=== PATIENT | male | born 1945 | race Caucasian/White ===

== ENCOUNTER 2018-07-08 07:00 | Day surgery (SDC) | payer OTHER ==
[2018-07-04 11:26] LABS: Basophils # (auto) 0 uL; Basophils % (auto) 0.4 % (0.0-2.0); Eosinophils # (auto) 0 uL; Eosinophils % (auto) 0.1 % (0.0-7.0); Hematocrit 46.3 % (41.0-53.0); Hemoglobin 15.6 g/dL (13.5-17.5); Mean Corpuscular Hemoglobin 31.5 pg (28.0-32.0); Mean Corpuscular Hgb Conc. 33.8 g/dL (32.0-36.0); Mean Corpuscular Volume 93.3 fL (80.0-100.0); Monocytes # (auto) 0.4 uL; Monocytes % (auto) 5.8 % (0.0-12.0); Neutrophils % (auto) 80.7 % (37.0-80.0); Platelet Count (auto) 208 10^3/uL (140-450); Red Blood Cells 4.96 10^6/uL (4.5-5.90); White Blood Cell 7.5 10^3/uL (4.4-10.8)
[2018-07-04 11:29] LABS: Urine Bacteria FEW /hpf (None Seen); Urine Blood Negative /uL (Negative); Urine Mucus FEW (None Seen); Urine Specific Gravity 1.021 (1.001-1.035); Urine WBC 16 /hpf (0 - 3)
[2018-07-04 11:38] LABS: INR 0.97 (0.9-1.15); Partial Thromboplastin Time 26.4 sec (23.78-33.04)
[2018-07-04 11:46] LABS: Albumin 3.8 g/dL (3.4-5.0); Potassium 3.5 mmol/L (3.5-5.1)
[2018-07-04 11:52] LABS: BUN/Creatinine Ratio 17.7; Bilirubin, Total 0.6 mg/dL (0.2-1.0); Calcium 8.8 mg/dL (8.5-10.1); Total Protein 7.1 g/dL (6.4-8.2)
[~2018-07-08] VITALS: Ht 185.4 cm; Wt 77.1 kg
[~2018-07-08 07:00] MED LIST: ATOR20TA50 PO; BENA40TA7 PO; LUTE6TAB2 PO; NIAC500T71 PO; OMEG100078 PO; OMEP20CA74 OR; TAM04C PO
[2018-07-08] MEDS ORDERED: CIPROFLOXACIN 400MG/200ML 200 ML IV ONE (07:30)
[2018-07-08] MEDS ORDERED: SUCCINYLCHOLINE CHLORIDE 20 MG/ML 10ML VIAL IV ONE (08:42)
[2018-07-08] MEDS ORDERED: LIDOCAINE 1% (LOCAL ANESTH.) PF 5ml SDV ONE (08:42)
[2018-07-08] MEDS ORDERED: ROCURONIUM 10MG/ML 10ML VIAL IV ONE (08:46)
[2018-07-08] MEDS ORDERED: MIDAZOLAM HCL 1MG/1ML-2 ML VIAL ONE (08:46)
[2018-07-08] MEDS ORDERED: PROPOFOL 10 MG/ML 20 ML IV ONE (08:46)
[2018-07-08] MEDS ORDERED: METOCLOPRAMIDE HCL 5MG/ml INJ 2ml VIAL ONE (08:50)
[2018-07-08] MEDS ORDERED: fentaNYL CITRATE 100 MCG/2 ML VL ONE (08:58)
[2018-07-08] MEDS ORDERED: ePHEDrine SULFATE 50 MG/ML AMP ONE (09:11)
[2018-07-08] MEDS ORDERED: SODIUM CHLORIDE LOCK 10 ML ONE (09:11)
[2018-07-08] MEDS ORDERED: HYDROmorphone HCL 2 MG/ML VL IV PRN ×2 (09:15)
[2018-07-08] MEDS ORDERED: ONDANSETRON HCL 4 MG/2 ML VIAL IV ONE (09:15)
[2018-07-08] MEDS ORDERED: NALOXONE HCL 0.4 MG/ML VIAL IV PRN (09:15)
[2018-07-08] MEDS ORDERED: GLYCOPYRROLATE 0.2 MG/ML 1ML VIAL ONE (09:21)
[2018-07-08] MEDS ORDERED: NEOSTIGMINE 1 MG/ML INJ (10mg/10ML VIAL) ONE (09:21)
[2018-07-08] MEDS ORDERED: DexAMETHasone SOD PHOS 10MG/1ML VIAL INJ ONE (09:27)
[2018-07-08 10:31] VITALS: BP 139/89
== END 2018-07-08 10:37 | disposition home or self-care (01) ==
LOC: SUR 07:00
PROVIDERS: ATTEND Urology
DX: N20.1 Calculus of ureter (principal); I10 Essential (primary) hypertension; K21.9 Gastro-esophageal reflux disease without esophagitis; M19.90 Unspecified osteoarthritis, unspecified site; E78.00 Pure hypercholesterolemia, unspecified; N40.0 Benign prostatic hyperplasia without lower urinary tract symptoms; Z88.0 Allergy status to penicillin
CPT/HCPCS: 36415; 50590; 80053; 81001; 85025; 85610; 85730; J0330; J0744; J1100; J2250; J2704; J2765; J3010

== ENCOUNTER → 2018-08-01 | Outpatient (CLI) | payer OTHER | END | disposition home or self-care (01) | LOC: LAB 14:00 | PROVIDERS: ATTEND Urology | DX: N20.0 Calculus of kidney (principal) | CPT/HCPCS: 82360 ==

== ENCOUNTER → 2019-02-10 | Outpatient (CLI) | payer OTHER ==
[2019-02-10 09:58] LABS: Basophils # (auto) 0 uL; Basophils % (auto) 0.7 % (0.0-2.0); Eosinophils # (auto) 0.1 uL; Eosinophils % (auto) 1.8 % (0.0-7.0); Hematocrit 46.7 % (41.0-53.0); Hemoglobin 16.2 g/dL (13.5-17.5); Lymphocytes # (auto) 1.6 uL; Lymphocytes % (auto) 26.9 % (10.0-50.0); Mean Corpuscular Hemoglobin 32.3 pg (28.0-32.0); Mean Corpuscular Hgb Conc. 34.6 g/dL (32.0-36.0); Mean Corpuscular Volume 93.2 fL (80.0-100.0); Monocytes # (auto) 0.6 uL; Monocytes % (auto) 9.5 % (0.0-12.0); Neutrophils # (auto) 3.7 uL; Neutrophils % (auto) 61.1 % (37.0-80.0); Platelet Count (auto) 187 10^3/uL (140-450); Red Cell Distribution Width 12.6 % (11.8-14.3)
[2019-02-10 10:26] LABS: Albumin 3.6 g/dL (3.4-5.0); Calcium 8.6 mg/dL (8.5-10.1)
[2019-02-10 10:35] LABS: BUN/Creatinine Ratio 18.5; Bilirubin, Total 0.7 mg/dL (0.2-1.0); Total Protein 6.8 g/dL (6.4-8.2)
== END | disposition home or self-care (01) ==
LOC: LAB 09:35
PROVIDERS: ATTEND Physician Assistant
DX: Z12.5 Encounter for screening for malignant neoplasm of prostate (principal); I12.9 Hypertensive chronic kidney disease with stage 1 through stage 4 chronic kidney disease, or unspecified chronic kidney disease; N18.2 Chronic kidney disease, stage 2 (mild); M12.9 Arthropathy, unspecified; N40.0 Benign prostatic hyperplasia without lower urinary tract symptoms
CPT/HCPCS: 36415; 80053; 80061; 85025

== ENCOUNTER 2024-12-23 06:21 | Inpatient (IN) | payer OTHER ==
[2024-12-23] VITALS (10 sets, daily range): BP systolic 124–173; BP diastolic 81–99; PULSE 84–103; RESP 14–22; TEMP 97.6–98.4; O2SAT 95–99
[~2024-12-23] VITALS: Ht 185.4 cm; Wt 68.9 kg
[~2024-12-23 06:21] MED LIST changes: -BENA40TA7 PO; +BENA40TA71 PO; +FINA5TAB4 PO; +METF-489 PO; +OMEG-20 PO; -OMEG100078 PO; -TAM04C PO; +TAMS-35 PO
[2024-12-23] MEDS ORDERED: ONDANSETRON HCL 4 MG/2 ML VIAL ONE (08:06)
[2024-12-23] MEDS ORDERED: MIDAZOLAM HCL 2MG/2ML 2ml VIAL (1mg/ml) ONE (08:06)
[2024-12-23] MEDS ORDERED: LIDOCAINE HCL 2% TOP JELLY 5ML TOP ONE (08:06)
[2024-12-23] MEDS ORDERED: SODIUM CHLORIDE LOCK 10 ML ONE (08:06)
[2024-12-23] MEDS ORDERED: LIDOCAINE 1% INJ PF 5ML AMP ONE (08:06)
[2024-12-23] MEDS ORDERED: fentaNYL CITRATE 100 MCG/2 ML VL ONE (08:06)
[2024-12-23] MEDS ORDERED: PROPOFOL 10 MG/ML 20 ML IV ONE (08:06)
[2024-12-23] MEDS ORDERED: HYDROmorphone HCL 2 MG/ML VL/or syr IV PRN ×2 (08:30)
[2024-12-23] MEDS ORDERED: MORPHINE SULFATE 4 MG/ML SYR/VIAL IV PRN ×2 (08:30→13:15)
[2024-12-23] MEDS: KETOROLAC TROMETH 30 MG/ML 1ML VIAL IV ONE (08:30)
[2024-12-23] MEDS: IOHEXOL 300 MG/ML 100ML BOTTLE IJ ONE (08:32)
[2024-12-23] MEDS: CIPROFLOXACIN 400MG/200ML 200 ML IV ONE (08:50)
--- NOTE | 2024-12-23 09:46 | DVHNC2 ---
Procedure - OPERATIVE REPORT Pre-op. Diagnosis: Large bladder calculus greater than 5 cm elevated PSA elevated PSA Post-op. Diagnosis: Same as pre-op diagnosis Operation: Shock/pulse ultrasonic Cystolitholapaxy transrectal ultrasound-guided prostate biopsy Anesthesia: General Indications: Patient was found to have symptomatic bladder stone > 5cm and elevated PSA Informed Consent: Indications, risks, complications, alternatives and benefits of ultrasonic/laser cystolitholapaxy and prostate biopsy were discussed with patient. All question were encouraged and answered. He elected to proceed. Details of Procedure: Under satisfactory anesthesia, the patient was positioned in lithotomy and cystoscopy is performed with finding of large (>5 cm) bladder stone. Using the Shock/Pulse ultrasonic system, the bladder calculi are pulverized into fragments and suctioned out. 20 F Lepe catheter was placed. Next transrectal ultrasound was performed measuring the prostate to be 31 g. Extended core biopsies was taken per protocol. Patient tolerated the procedure well. The patient was then taken off the OR table and sent to recovery room in stable condition. Specimens: Bladder calculi fragments extended core prostate biopsy Complications: None NAVARRO GUNN MD Dec 23, 2024 09:46
--- NOTE | 2024-12-23 09:47 | DVHDS2 ---
New Physician D'charge PN Admitting Diagnosis Admitting Diagnosis Bladder calculus Elevated PSA Discharge Diagnosis Same Operations or Procedures Shock pulse cysto litholapaxy Transrectal ultrasound-guided prostate biopsy Reason(s) For Hospitalization Surgery Treatment Plan Discharge Condition of Discharge Fair Disposition Home Discharge Instructions Diet: Regular Activity: Light activity Activity comment: As tolerated Medications: Given Follow Up Care Follow Up/Referral: Follow up in two weeks for pathology results Discharge Statement: "Patient was advised to return to the ER or call 911 if any headaches, dizziness, shortness of breath, chest pain, abdominal pain, bleeding, fevers, or worsening of medical condition. Patient was counseled about treatment plan, medications, possible side effects, patientverbalized understanding. All questions were answered to the best of my ability. This discharge took greater then 30 minutes in planning, reviewing documentation, counseling the patient, and discussing with other team members." NAVARRO GUNN MD Dec 23, 2024 09:47
[2024-12-23] MEDS: METOCLOPRAMIDE HCL 5MG/ml INJ 2ml VIAL IV PRN (12:11)
[2024-12-23] MEDS: MORPHINE SULFATE INJ 2 MG/ml SYRG IV PRN (12:25)
[2024-12-23] MEDS: METOCLOPRAMIDE HCL 5MG/ml INJ 2ml VIAL ONE (12:33)
[2024-12-23] MEDS ORDERED: NITROGLYCERIN 0.4 MG SL TAB SL PRN (12:45)
[2024-12-23] MEDS: ONDANSETRON HCL 4 MG/2 ML VIAL ONE (13:48)
[2024-12-23] MEDS: ONDANSETRON HCL 4 MG/2 ML VIAL IV ONE (13:50)
[2024-12-23] MEDS: SODIUM CHLORIDE 0.9% 500 ML IV ONE (15:11)
[2024-12-23] MEDS ORDERED: MORPHINE SULFATE INJ 2 MG/ml SYRG IV PRN (18:15)
[2024-12-23] MEDS ORDERED: ONDANSETRON HCL 4 MG/2 ML VIAL IV PRN (18:15)
--- NOTE | 2024-12-23 18:30 | DVHHP2 ---
History of Present Illness Reason for Visit: Arrhythmias History of Present Illness 79-year-old male with a known history of diabetes mellitus type 2, hypertension, dyslipidemia, prostate enlargement with the elevated PSA and bladder urinary stone patient is status post cystoscopy with cystolitholapaxy. Patient was developing some arrhythmias eventually patient was recommended to be admitted overnight. Patient currently denies any chest pain palpitation. Denies any known history of coronary artery disease. Cardiovascular: HTN, hyperipidemia Renal/: Hematuria, Other (Prostate enlargement.) Endocrine: Diabetes Review of Systems Review of Systems Twelve review of system are negative besides mentioned above. Allergies: Coded Allergies: Penicillins (Verified Allergy, Severe, 07/04/18) Medications Current Medications Medications Dose Ordered Sig/Donya Route Start Time Stop Time Status Last Admin Dose Admin Nitroglycerin 0.4 mg Q5MINP PRN SL 12/23/24 12:45 Morphine Sulfate 2 mg Q30M PRN IV 12/23/24 13:15 Ciprofloxacin 200 ml @ 200 mls/hr BID IV 12/23/24 22:00 Acetaminophen/ Hydrocodone Bitart 1 tab Q4HPRN PRN PO 12/23/24 18:15 Morphine Sulfate 2 mg Q4HPRN PRN IV 12/23/24 18:15 Ondansetron HCl 4 mg Q4HPRN PRN IV 12/23/24 18:15 Hydralazine HCl 10 mg Q6HP PRN IV 12/23/24 18:15 Exam Vital Signs Vital Signs Date Time Temp Pulse Resp B/P (MAP) Pulse Ox O2 Delivery O2 Flow Rate FiO2 12/23/24 18:11 97.6 92 20 173/96 (121) 97 97.6 12/23/24 12:59 Nasal Cannula 3.0 12/23/24 12:59 99 Exam HEENT pupils are reactive Neck is supple CV is S1-S2 regular rate and rhythm Respiratory diminished breath sounds bases GI positive bowel sound 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 Labs/Xrays Labs Test 12/23/24 09:08 12/23/24 07:45 Range/Units POC Glucose 148 H 70-106 mg/dl SEPSIS Sepsis Screen Physician Orders Admit (12/23/24 12:32) Nitroglycerin Sublingual (Ntrostat Subli (12/23/24 12:45) Stat Ekg For Chest Pain (12/23/24 12:32) Notify Of Changes From Base (12/23/24 12:32) Surveying Crew Rodman For 24 Hours (12/23/24 12:32) Emergency Dysrhythmia Protocol (12/23/24 12:32) Rhythm Strips Once Every Shift (12/23/24 12:32) Oxygen By Nasal Cannula (12/23/24 12:32) Ciprofloxacin 400mg/200ml (Cipro Iv) (12/23/24 22:00) Morphine Sulfate Injection (12/23/24 13:15) Transfer Orders (12/23/24 15:36) Basic Metabolic Panel (12/23/24 15:54) Magnesium (12/23/24 15:54) Stone Analysis Urinary (12/23/24 09:08) Hydrocodone-Acet 5/325mg Tab ([place] (12/23/24 18:15) Morphine Sulfate Injection (12/23/24 18:15) Ondansetron Hcl (Zofran) (12/23/24 18:15) Hydralazine Injection (Apresoline Inject (12/23/24 18:15) Basic Metabolic Panel (12/24/24 06:00) Complete Blood Count (12/24/24 06:00) Magnesium (12/24/24 06:00) Vital Signs Date Time Temp Pulse Resp B/P (MAP) Pulse Ox O2 Delivery O2 Flow Rate FiO2 12/23/24 18:11 97.6 92 20 173/96 (121) 97 97.6 12/23/24 17:20 96 20 161/90 (113) 97 12/23/24 16:43 96 21 163/90 (114) 98 12/23/24 15:43 93 16 157/85 (109) 95 12/23/24 14:43 97 13 173/89 (117) 97 12/23/24 13:43 97 15 177/87 (117) 98 12/23/24 12:59 84 20 99 Nasal Cannula 3.0 12/23/24 12:59 Nasal Cannula 3.0 99 12/23/24 12:43 85 20 158/89 (112) 98 12/23/24 12:25 86 16 165/87 12/23/24 11:43 92 17 175/85 (115) 97 12/23/24 11:28 96 17 96 Room Air 0 12/23/24 11:28 88 16 152/83 (106) 96 12/23/24 11:28 Room Air 0 96 12/23/24 10:58 87 20 154/86 (108) 97 12/23/24 10:28 82 21 169/74 (105) 96 Medications Medications Dose Ordered Sig/Donya Route Start Time Stop Time Status Last Admin Dose Admin Ciprofloxacin 200 ml @ ud STK-MED ONCE IV 12/23/24 07:45 12/23/24 07:41 DC 12/23/24 08:50 Metoclopramide HCl 10 mg ONCE PRN IV 12/23/24 08:30 12/23/24 08:31 DC 12/23/24 12:11 10 MG Morphine Sulfate 1 mg Q30M PRN IV 12/23/24 08:30 12/23/24 10:31 DC 12/23/24 12:25 1 MG Ondansetron HCl 4 mg ONCE ONCE IV 12/23/24 13:46 12/23/24 13:48 DC 12/23/24 13:50 4 MG Assessment/Plan Assessment/Plan 79-year-old male with a known history of diabetes mellitus type 2, hypertension, dyslipidemia who underwent shock/pulse ultrasonic cysto litholapaxy and transrectal guided prostate biopsy for prostate enlargement with the elevated as a found to have 1. Tele arrhythmias, currently asymptomatic 2. Large bladder calculus with the elevated PSA status post shock/pulse ultrasound cystolitholapaxy and transrectal guided prostate biopsy ruled out prostatic malignancy 3. Diabetes mellitus type 2 4. Hypertension Five dyslipidemia -tele admission, 2D echo, cardiology consultation, continue pain meds as needed Plan discussed with: Patient, Other My Orders Orders - ALONDRA PANCHAL MD Procedure Category Date Status Time Transfer Orders XFER 12/23/24 Transmitted 15:36 Basic Metabolic Panel LAB 12/23/24 Logged 15:54 Magnesium LAB 12/23/24 Logged 15:54 Hydrocodone-Acet PHA 12/23/24 In Process 5/325mg Tab ([place] 18:15 Morphine Sulfate PHA 12/23/24 In Process Injection 18:15 Ondansetron Hcl PHA 12/23/24 In Process (Zofran) 18:15 Hydralazine Injection PHA 12/23/24 In Process (Apresoline Inject 18:15 Basic Metabolic Panel LAB 12/24/24 Verified 06:00 Complete Blood Count LAB 12/24/24 Verified 06:00 Magnesium LAB 12/24/24 Verified 06:00 Date of Service: Dec 23, 2024 Billing Provider: ALONDRA PANCHAL MD Common Visit Codes: NOT BILLABLE ALONDRA PANCHAL MD Dec 23, 2024 18:30
[2024-12-23 19:21] LABS: Chloride 103 mmol/L (98-107); Potassium 3.8 mmol/L (3.5-5.1); Sodium 137 mmol/L (136-145)
[2024-12-23 19:22] LABS: Anion Gap 11 (5-15); Carbon Dioxide 23 mmol/L (20-31)
[2024-12-23 19:27] LABS: BUN/Creatinine Ratio 16.4 (10.0-20.0); Blood Urea Nitrogen 9 mg/dL (9-23)
[2024-12-23 19:32] LABS: Calcium 8.3 mg/dL (8.7-10.4); Glucose 181 mg/dL (74-106); Magnesium 1.6 mg/dL (1.6-2.6)
[2024-12-23] MEDS: hydrALAZINE HCL 20 MG/ML VL IV PRN (21:03)
[2024-12-23] MEDS: HYDROcodone-ACET 5/325MG TAB PO PRN (21:07)
[2024-12-23] MEDS: CIPROFLOXACIN 400MG/200ML 200 ML IV SCH (21:11)
[2024-12-24] VITALS (9 sets, daily range): BP systolic 126–158; BP diastolic 72–96; PULSE 60–92; RESP 18–20; TEMP 98.1–98.7; O2SAT 93–100
[2024-12-24 06:59] LABS: Hematocrit 40.6 % (41.0-53.0); Hemoglobin 14.2 g/dL (13.5-17.5); Mean Corpuscular Hemoglobin 32.7 pg (28.0-32.0); Mean Corpuscular Volume 93.2 fL (80.0-100.0); Nucleated Red Blood Cells % 0.0 %
[2024-12-24 07:09] LABS: Anion Gap 10 (5-15); Calcium 8.7 mg/dL (8.7-10.4); Carbon Dioxide 28 mmol/L (20-31); Chloride 103 mmol/L (98-107); Sodium 141 mmol/L (136-145)
[2024-12-24 07:15] LABS: BUN/Creatinine Ratio 9.4 (10.0-20.0); Magnesium 1.9 mg/dL (1.6-2.6)
[2024-12-24 07:18] LABS: Blood Urea Nitrogen 6 mg/dL (9-23); Glucose 131 mg/dL (74-106); Potassium 3.4 mmol/L (3.5-5.1)
[2024-12-24 09:36] LABS: Triglycerides 97 mg/dL (< 150)
[2024-12-24 09:38] LABS: Cholesterol 145 mg/dL (< 200); HDL Cholesterol 57 mg/dL (40-59)
--- NOTE | 2024-12-24 11:31 | DVHINCON2 ---
Date Seen: Dec 24, 2024 Referring Physician MD Rossy Reason for Consultation Arrhythmias History of Present Illness This is a 79-year-old male patient who was initially seen by urologist Dr. Chi for an outpatient procedure of shock/pulse ultrasonic cystolitholapaxy. The patient was admitted to the hospital for concerns of hematuria post procedure. Cardiology has been consulted at this time for arrhythmia. Initial twelve lead electrocardiogram found in patient's chart reveals normal sinus rhythm with occasional PVC. At time of assessment, the patient remains in normal sinus rhythm. No arrhythmias or events found on cardiac care unit nurse. The patient denies any cardiac symptoms including chest pain, palpitations, shortness of breath, or dizziness. Significant past medical history includes hypertension, dyslipidemia, retinitis pigmentosa, kidney stones, and benign prostatic hyperplasia. Past Medical History Past medical history reviewed. No other significant than mentioned above. Past Surgical History Lithotripsy Cholecystectomy Family History: Family history: Diabetes mellitus G8 FATHER G8 BROTHER Family History Family history reviewed. 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 Denies any alcohol use Denies any tobacco use Allergies: Coded Allergies: Penicillins (Verified Allergy, Severe, 07/04/18) Home Meds Reported Medications Metformin Hydrochloride (METFORMIN HCL ER) 500 Mg Tab, 500 MG PO DAILY, TAB 12/22/24 Finasteride (Finasteride) 5 Mg Tab, 5 MG PO DAILY, TAB 12/22/24 Tamsulosin Hcl (Flomax) 0.4 Mg Cap, 1 CAP PO DAILY, #30 CAP 11 Refills 07/04/18 Vegetable Enzyme (LUTEIN) 6 Mg Tab, 6 MG PO DAILY, TAB 07/04/18 Benazepril Hcl (Benazepril Hcl) 40 Mg Tab, 40 MG PO DAILY for 30 Days, MG 07/04/18 Atorvastatin Calcium (ATORVASTATIN CALCIUM) 20 Mg Tab, 1 TAB PO DAILY, #30 TAB 5 Refills 07/04/18 Niacinamide (NIACIN) 500 Mg Tab, 500 MG PO BID, TAB 02/15/13 [place]-3 Fatty Acids (FISH OIL) 1,000 Mg Cap, 1000 MG PO DAILY, CAP 02/15/13 Omeprazole (PRILOSEC) 20 Mg Cap, 20 MG OR DAILY, CAP 02/15/13 Home Meds Home medications reviewed. Current Medications Current Medications Medications (Trade) Dose Ordered Sig/Donya Route PRN Reason Start Time Stop Time Status Last Admin Nitroglycerin (Ntrostat Sublingual) 0.4 mg Q5MINP PRN SL FOR CHEST PAIN 12/23/24 12:45 Morphine Sulfate 2 mg Q30M PRN IV FOR CHEST PAIN 12/23/24 13:15 Ciprofloxacin 200 ml @ 200 mls/hr BID IV 12/23/24 22:00 12/24/24 09:33 Acetaminophen/ Hydrocodone Bitart ([place] 5/325MG Tab) 1 tab Q4HPRN PRN PO MODERATE PAIN (4-6 PAIN SCALE) 12/23/24 18:15 12/24/24 09:42 Morphine Sulfate 2 mg Q4HPRN PRN IV SEVERE PAIN (7-10 PAIN SCALE) 12/23/24 18:15 Ondansetron HCl (Zofran) 4 mg Q4HPRN PRN IV NAUSEA / VOMITING 12/23/24 18:15 Hydralazine HCl (Apresoline Injection) 10 mg Q6HP PRN IV SBP>150 12/23/24 18:15 12/23/24 21:03 Review of Systems Constitutional: No symptom reported Ears, Nose, & Throat: No symptom reported Eyes: No symptom reported Neurological: No symptoms reported Pulmonary/Respiratory: No symptoms reported Cardiovascular: No symptom reported Gastrointestinal: No symptom reported Genitourinary: Hematuria Musculoskeletal: No symptom reported Skin: No symptom reported Psychiatric: No symptom reported Endocrine: No symptom reported Hematologic/Lymphatic: No symptom reported Vital Signs Vital Signs Date Time Temp Pulse Resp B/P (MAP) Pulse Ox O2 Delivery O2 Flow Rate FiO2 12/24/24 09:00 98.7 80 18 126/73 (90) 95 98.7 12/24/24 08:00 Room Air* 0 21 Physical Exam General Appearance: Cooperative. Well-developed. Well-nourished. No acute distress. Pulmonary/Respiratory: Clear, bilateral breaths sounds. Cardiovascular/Chest: Regular rate and rhythm. Peripheral Pulses: 2+ Radial (R). 2+ Radial (L). 2+ Pedal (R). 2+ Pedal (L) Abdominal Exam: Normal bowel sounds. Ankle Exam: Negative ankle edema Lower extremities: Negative lower extremity edema Neuro/Mental Status: A/OX4, coherent. Thoughts/Psych: Normal thought pattern. Appropriate mood and affect. Good judgment and insight. Appearance: No acute distress. Skin Exam: Normal inspection. Normal color. Warm and dry. Labs/Diagnostic Data Labs Test 12/24/24 05:45 12/23/24 09:08 12/23/24 07:45 Range/Units White Blood Count 10.3 4.4-10.8 10^3/uL Red Blood Count 4.35 L 4.5-5.90 10^6/uL Hemoglobin 14.2 13.5-17.5 g/dL Hematocrit 40.6 L 41.0-53.0 % Mean Corpuscular Volume 93.2 80.0-100.0 fL Mean Corpuscular Hemoglobin 32.7 H 28.0-32.0 pg Mean Corpuscular Hemoglobin Concent 35.1 32.0-36.0 g/dL Red Cell Distribution Width 13.3 11.8-14.3 % Platelet Count 207 140-450 10^3/uL Mean Platelet Volume 8.6 6.9-10.8 fL Neutrophils (%) (Auto) 77.2 37.0-80.0 % Lymphocytes (%) (Auto) 13.5 10.0-50.0 % Monocytes (%) (Auto) 9.0 0.0-12.0 % Eosinophils (%) (Auto) 0.2 0.0-7.0 % Basophils (%) (Auto) 0.1 0.0-2.0 % Neutrophils # (Auto) 7.9 1.6-8.6 10 ^3/uL Lymphocytes # (Auto) 1.4 0.4-5.4 10 ^3/uL Monocytes # (Auto) 0.9 0-1.3 10 ^3/uL Eosinophils # (Auto) 0 0-0.8 10 ^3/uL Basophils # (Auto) 0 0-0.2 10 ^3/uL Nucleated Red Blood Cells 0.0 % Sodium Level 141 136-145 mmol/L Potassium Level 3.4 L 3.5-5.1 mmol/L Chloride Level 103 98-107 mmol/L Carbon Dioxide Level 28 20-31 mmol/L Anion Gap 10 5-15 Blood Urea Nitrogen 6 L 9-23 mg/dL Creatinine 0.64 L 0.700-1.30 mg/dL Glomerular Filtration Rate Calc 97 >90 mL/min BUN/Creatinine Ratio 9.4 L 10.0-20.0 Serum Glucose 131 H 74-106 mg/dL Hemoglobin A1c 5.6 <5.7 % A1C Calcium Level 8.7 8.7-10.4 mg/dL Magnesium Level 1.9 1.6-2.6 mg/dL Triglycerides Level 97 < 150 mg/dL Cholesterol Level 145 < 200 mg/dL LDL Cholesterol 75 < 100 mg/dL HDL Cholesterol 57 40-59 mg/dL Thyroid Stimulating Hormone (TSH) 0.86 0.55-4.78 uIU/mL POC Glucose 148 H 70-106 mg/dl Assessment Sinus rhythm with occasional PVCs Rule out structural heart disease Hypertension Dyslipidemia Hypokalemia Bladder calculus status post shock/pulse ultrasonic cystolitholapaxy Hematuria Benign prostatic hyperplasia Retinitis pigmentosa Plan/Recommendation We will continue with the following plan/recommendations (Dr. Mai): We will proceed with obtaining a transthoracic echocardiogram to evaluate cardiac function. 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 Reviewed twelve lead electrocardiogram which found sinus rhythm with occasional PVCs. At this time, patient is hypokalemic, we will order potassium replacement. We will also initiate magnesium. Consider beta-puja if PVC burden becomes frequent and/or patient becomes symptomatic. Recommend to monitor and replete electrolytes as needed. In the setting of an unremarkable transthoracic echocardiogram, there is no further inpatient cardiac workup indicated at this time. Thank you for allowing us to care for this patient. Please call with any questions or concerns. Critical care time spent: 44 minutes This medical document was created using an electronic medical record system with voice recognition software and computerized dictation system. Although this document has been carefully reviewed, there might still be some phonetic and typographical errors. Occasional wrong-word or ``sound-alike substitutions may have occurred due to the inherent limitations of voice recognition software. These areas are purely typographical due to imperfections of the software programs and do not reflect any compromise in the patient's medical care. Please read the chart carefully and recognize, using context, where these subst itutions have occurred. Plan discussed with: Patient NYHA Physical activity limitations: NA Date of Service: Dec 24, 2024 Billing Provider: RAYMOND MUÑOZ Cardiology Common Codes: [id number] INP/OBS CARE (High) Cardiology Consultation Codes: [id number] CONSULT <45MIN RAYMOND MUÑOZ Dec 24, 2024 11:31
[2024-12-24] MEDS: MAGNESIUM OXIDE 400 MG TAB PO ONE (12:19)
[2024-12-24] MEDS: POTASSIUM CHL 20 Meq TABLET PO ONE (12:19)
--- NOTE | 2024-12-24 17:00 | DVHPN2 ---
Subjective Patient is complaining of gross hematuria. 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 Medications Current Medications Medications Dose Ordered Sig/Donya Route Start Time Stop Time Status Last Admin Dose Admin Nitroglycerin 0.4 mg Q5MINP PRN SL 12/23/24 12:45 Morphine Sulfate 2 mg Q30M PRN IV 12/23/24 13:15 Ciprofloxacin 200 ml @ 200 mls/hr BID IV 12/23/24 22:00 12/24/24 09:33 200 MLS/HR Acetaminophen/ Hydrocodone Bitart 1 tab Q4HPRN PRN PO 12/23/24 18:15 12/24/24 09:42 1 TAB Morphine Sulfate 2 mg Q4HPRN PRN IV 12/23/24 18:15 Ondansetron HCl 4 mg Q4HPRN PRN IV 12/23/24 18:15 Hydralazine HCl 10 mg Q6HP PRN IV 12/23/24 18:15 12/23/24 21:03 10 MG Magnesium Oxide 400 mg DAILY PO 12/25/24 10:00 Laboratory Results Laboratory Tests 12/24/24 05:45 Chemistry Test 12/23/24 18:30 12/24/24 05:45 Calcium Level 8.3 mg/dL (8.7-10.4) L 8.7 mg/dL (8.7-10.4) Magnesium Level 1.6 mg/dL (1.6-2.6) 1.9 mg/dL (1.6-2.6) Lipid panel Test 12/24/24 05:45 Cholesterol Level 145 mg/dL (< 200) HDL Cholesterol 57 mg/dL (40-59) Triglycerides Level 97 mg/dL (< 150) HgA1c, TSH Test 12/24/24 05:45 Hemoglobin A1c 5.6 % A1C (<5.7) Thyroid Stimulating Hormone (TSH) 0.86 uIU/mL (0.55-4.78) Assessment/Plan Assessment/Plan 79-year-old male with a known history of diabetes mellitus type 2, hypertension, dyslipidemia who underwent shock/pulse ultrasonic cysto litholapaxy and transrectal guided prostate biopsy for prostate enlargement with the elevated as a found to have 1. Tele arrhythmias, currently asymptomatic 2. Large bladder calculus with the elevated PSA status post shock/pulse ultrasound cystolitholapaxy and transrectal guided prostate biopsy ruled out prostatic malignancy 3. Gross hematuria 4. Hypertension 5. Diabetes mellitus type 2 6. dyslipidemia Tele monitor 2D echo, cardiology consultation, continue pain meds as needed -urology follow up for hematuria Plan discussed with: Patient My Orders Orders - ALONDRA PANCHAL MD Procedure Category Date Status Time Hydrocodone-Acet PHA 12/23/24 In Process 5/325mg Tab ([place] 18:15 Morphine Sulfate PHA 12/23/24 In Process Injection 18:15 Ondansetron Hcl PHA 12/23/24 In Process (Zofran) 18:15 Hydralazine Injection PHA 12/23/24 In Process (Apresoline Inject 18:15 * Cardiology Consult CONS 12/23/24 Transmitted 18:26 Pureed DIET 12/24/24 Transmitted Lunch Date of Service: Dec 24, 2024 Billing Provider: ALONDRA PANCHAL MD Common Visit Codes: NOT BILLABLE ALONDRA PANCHAL MD Dec 24, 2024 17:00
[2024-12-25 05:00] VITALS: BP 167/95; PULSE 74; RESP 20; TEMP 98.9; O2SAT 95
[2024-12-25 08:00] VITALS: PULSE 72; RESP 16; O2SAT 98
--- NOTE | 2024-12-25 08:03 | ECG ---
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
--- NOTE | 2024-12-25 08:04 | ECG ---
[facility] Test Date: 2024-12-23 Test Time: 16:02:06 Pat Name: EKTA SIMPSON Department: Room: 0272T A Gender: M Pediatric Physician: MARYLU : 1945 Requested By: ALONDRA PANCHAL Order Number: [id number] Reading MD: Vahid Mai Measurements Intervals [place] Rate: 134 P: 43 MS: 128 QRS: 3 QRSD: 78 T: -14 QT: 308 QTc: 459 Interpretive Statements Sinus tachycardia Nonspecific ST segment changes, inferior leads. Electronically Signed On 12-27-2024 17:31:29 PDT by Vahid Mai Please click the below link to view image of tracing.
[2024-12-25 08:36] VITALS: BP 179/99; PULSE 84; RESP 16; TEMP 97.9; O2SAT 97
[2024-12-25] MEDS: MAGNESIUM OXIDE 400 MG TAB PO SCH (09:02)
--- NOTE | 2024-12-25 10:22 | DVHSR ---
APPROVED REPORT EXAM: Two-dimensional and M-mode echocardiogram with Doppler and color Doppler. Blood Pressure: 134/78 mmHg INDICATION Arrhythmia RISK FACTORS Height: 6'1", Weight: 164 DIMENSIONS LVDd4.6 (3.8-5.7cm)LA (2D)3.9 (1.9-4.0cm)Aortic Root3.9 (2.0-3.7cm) LVDs2.8 (2.5-4.0cm)LA (MM) (1.9-4.0cm)Aortic Cusp Exc1.8 (1.5-2.0cm) EF (%) 67.0 (55-70%)Rt. Atrium4.1 (1.9-4.0cm)Asc. Aorta3.9 cm IVSd1.0 (0.7-1.1cm)RV (D)3.2 (1.8-2.4cm) Mitral Valve MitralMitral Stenosis E wave0.75m/sMV Mean GR.mmHg A wave0.94m/sMV Peak GR.mmHg E/A ratio0.82D MVAcm2 DECEL [id number] 1/2 Timems Aortic Valve Aortic ValveAortic Stenosis V11.53m/Srinivas Mean GR.5mmHg V21.58m/Srinivas Peak GR.10mmHg LVOT Diameter2.3 (1.8-2.4cm)Doppler AVA4.02cm2 Pulmonic Valve V20.87m/s Conclusion Technically good study sinus rhythm. Left atrial enlargement with concentric LVH and aortic root enlargement. Dilation of the sinuses of Valsalva. Valves appear to be structurally normal. EF of 65% with normal RV function. Dopplers unremarkable. No pericardial effusion masses or vegetations.
[2024-12-25] MEDS: ACETAMINOPHEN 325 MG TAB PO PRN (12:45)
[2024-12-25 13:26] VITALS: BP 150/80; PULSE 85; RESP 17; TEMP 97.4; O2SAT 96
--- NOTE | 2024-12-25 15:39 | DVHDS2 ---
Discharge Summary Date of Admission Dec 23, 2024 at 12:32 Date of Discharge: Dec 25, 2024 Labs/Diagnostic Data: Laboratory Results Test 12/24/24 05:45 12/23/24 09:08 12/23/24 07:45 White Blood Count 10.3 10^3/uL (4.4-10.8) Red Blood Count 4.35 10^6/uL (4.5-5.90) Hemoglobin 14.2 g/dL (13.5-17.5) Hematocrit 40.6 % (41.0-53.0) Mean Corpuscular Volume 93.2 fL (80.0-100.0) Mean Corpuscular Hemoglobin 32.7 pg (28.0-32.0) Mean Corpuscular Hemoglobin Concent 35.1 g/dL (32.0-36.0) Red Cell Distribution Width 13.3 % (11.8-14.3) Platelet Count 207 10^3/uL (140-450) Mean Platelet Volume 8.6 fL (6.9-10.8) Neutrophils (%) (Auto) 77.2 % (37.0-80.0) Lymphocytes (%) (Auto) 13.5 % (10.0-50.0) Monocytes (%) (Auto) 9.0 % (0.0-12.0) Eosinophils (%) (Auto) 0.2 % (0.0-7.0) Basophils (%) (Auto) 0.1 % (0.0-2.0) Neutrophils # (Auto) 7.9 10 ^3/uL (1.6-8.6) Lymphocytes # (Auto) 1.4 10 ^3/uL (0.4-5.4) Monocytes # (Auto) 0.9 10 ^3/uL (0-1.3) Eosinophils # (Auto) 0 10 ^3/uL (0-0.8) Basophils # (Auto) 0 10 ^3/uL (0-0.2) Nucleated Red Blood Cells 0.0 % Sodium Level 141 mmol/L (136-145) Potassium Level 3.4 mmol/L (3.5-5.1) Chloride Level 103 mmol/L (98-107) Carbon Dioxide Level 28 mmol/L (20-31) Anion Gap 10 (5-15) Blood Urea Nitrogen 6 mg/dL (9-23) Creatinine 0.64 mg/dL (0.700-1.30) Glomerular Filtration Rate Calc 97 mL/min (>90) BUN/Creatinine Ratio 9.4 (10.0-20.0) Serum Glucose 131 mg/dL (74-106) Hemoglobin A1c 5.6 % A1C (<5.7) Calcium Level 8.7 mg/dL (8.7-10.4) Magnesium Level 1.9 mg/dL (1.6-2.6) Triglycerides Level 97 mg/dL (< 150) Cholesterol Level 145 mg/dL (< 200) LDL Cholesterol 75 mg/dL (< 100) HDL Cholesterol 57 mg/dL (40-59) Thyroid Stimulating Hormone (TSH) 0.86 uIU/mL (0.55-4.78) POC Glucose 148 mg/dl (70-106) Other Laboratory Tests 12/24/24 05:45 Brief Hx & Hospital Course: 79-year-old male with a known history of diabetes mellitus type 2, hypertension, dyslipidemia who underwent shock/pulse ultrasonic cysto litholapaxy and transrectal guided prostate biopsy for prostate enlargement with the elevated as a found to have sinus rhythm with a PVCs. Eventually patient was recommended to be admitted because of the gross hematuria after the biopsy. Patient's has a large bladder calculus with the elevated PSA status post shock/pulse ultrasound cystolitholapaxy with a prostate biopsy. Patient's needs to follow up with a prostate biopsy as an outpatient with the PCP as well as Urology and is could be most likely prostate cancer. Patient's UA hematuria has been resolved patient is being discharged under stable condition with the home health home safety evaluation. Patient was being sent with a leg bag and Lepe catheter. Condition at Discharge: Fair Final Diagnosis/Problems List 79-year-old male with a known history of diabetes mellitus type 2, hypertension, dyslipidemia who underwent shock/pulse ultrasonic cysto litholapaxy and transrectal guided prostate biopsy for prostate enlargement with the elevated as a found to have 1. Tele arrhythmias, currently asymptomatic 2. Large bladder calculus with the elevated PSA status post shock/pulse ultrasound cystolitholapaxy and transrectal guided prostate biopsy ruled out prostatic malignancy 3. Gross hematuria 4. Hypertension 5. Diabetes mellitus type 2 6. dyslipidemia Discharge Disposition: Home with Health Services SNF Discharge Will this Physician continue t: No Discharge Instruct/Medications Diet: Regular, Cardiac 2g Na,low cholest Activity: Light activity Activity comment: As tolerated Follow Up/Referral: Follow up with the Urology Dr. Filippo Chi in two weeks for pathology results Please follow up with the PCP in 1-2 weeks Medications: Given Continued Medications: Atorvastatin Calcium (Atorvastatin Calcium) 20 Mg Tab 1 TAB PO DAILY, #30 TAB 5 Refills Benazepril Hcl (Benazepril Hcl) 40 Mg Tab 40 MG PO DAILY for 30 Days, MG Finasteride (Finasteride) 5 Mg Tab 5 MG PO DAILY, TAB Metformin Hydrochloride (Metformin Hcl Er) 500 Mg Tab 500 MG PO DAILY, TAB Niacinamide (Niacin) 500 Mg Tab 500 MG PO BID, TAB [place]-3 Fatty Acids (Fish Oil) 1,000 Mg Cap 1000 MG PO DAILY, CAP Omeprazole (Prilosec) 20 Mg Cap 20 MG OR DAILY, CAP Tamsulosin Hcl (Flomax) 0.4 Mg Cap 1 CAP PO DAILY, #30 CAP 11 Refills Vegetable Enzyme (Lutein) 6 Mg Tab 6 MG PO DAILY, TAB Scheduled Atorvastatin Calcium (Atorvastatin Calcium), 1 TAB PO DAILY, (Reported) Benazepril Hcl (Benazepril Hcl), 40 MG PO DAILY, (Reported) Finasteride (Finasteride), 5 MG PO DAILY, (Reported) Metformin Hydrochloride (Metformin Hcl Er), 500 MG PO DAILY, (Reported) Niacinamide (Niacin), 500 MG PO BID, (Reported) [place]-3 Fatty Acids (Fish Oil), 1,000 MG PO DAILY, (Reported) Omeprazole (Prilosec), 20 MG OR DAILY, (Reported) Tamsulosin Hcl (Flomax), 1 CAP PO DAILY, (Reported) Vegetable Enzyme (Lutein), 6 MG PO DAILY, (Reported) Discharge Statement: "Patient was advised to return to the ER or call 911 if any headaches, dizziness, shortness of breath, chest pain, abdominal pain, bleeding, fevers, or worsening of medical condition. Patient was counseled about treatment plan, medications, possible side effects, patientverbalized understanding. All questions were answered to the best of my ability. This discharge took greater then 30 minutes in planning, reviewing documentation, counseling the patient, and discussing with other team members." ASSESSMENT ASSESSMENT Assessment 79-year-old male with a known history of diabetes mellitus type 2, hypertension, dyslipidemia who underwent shock/pulse ultrasonic cysto litholapaxy and transrectal guided prostate biopsy for prostate enlargement with the elevated as a found to have 1. Tele arrhythmias, currently asymptomatic 2. Large bladder calculus with the elevated PSA status post shock/pulse ultrasound cystolitholapaxy and transrectal guided prostate biopsy ruled out prostatic malignancy 3. Gross hematuria 4. Hypertension 5. Diabetes mellitus type 2 6. dyslipidemia Date of Service: Dec 25, 2024 Billing Provider: ALONDRA PANCHAL MD Common Visit Codes: NOT BILLABLE ALONDRA PANCHAL MD Dec 25, 2024 15:38
[2024-12-25 16:51] VITALS: BP 173/98; PULSE 83; RESP 16; TEMP 98.2; O2SAT 97
[2024-12-25] MEDS ORDERED: Ensure HIGH Protein Chocolate 8oz Bottle PO SCH (18:00)
== END 2024-12-25 17:31 | disposition home health service (06) | DRG 694 ==
LOC: SUR 06:21 → OVERFLOW 12:32 → WEST WING 17:45 → TELE-WESTW 18:13
PROVIDERS: ADMIT Urology; ATTEND Urology
PROC: 0VB08ZX Excision of Prostate, Via Natural or Artificial Opening Endoscopic, Diagnostic (ICD-10-PCS; 2024-12-23)
PROC: 0TCB8ZZ Extirpation of Matter from Bladder, Via Natural or Artificial Opening Endoscopic (ICD-10-PCS; principal; 2024-12-23 08:46)
DX: N21.0 Calculus in bladder (principal); N40.0 Benign prostatic hyperplasia without lower urinary tract symptoms; I10 Essential (primary) hypertension; E11.9 Type 2 diabetes mellitus without complications; E78.5 Hyperlipidemia, unspecified; E87.6 Hypokalemia; R31.0 Gross hematuria; I49.3 Ventricular premature depolarization; H35.52 Pigmentary retinal dystrophy; Z88.0 Allergy status to penicillin; Z83.3 Family history of diabetes mellitus; Z79.899 Other long term (current) drug therapy; Z87.442 Personal history of urinary calculi
CPT/HCPCS: 36415; 80048; 80061; 82360; 82962; 83036; 83735; 84443; 85025; 93005; 93306; G0378; J2250; J2405; J2704